=== PATIENT | female | born 1955 | race Hispanic/Latino ===

== ENCOUNTER 2017-11-09 08:36 | Outpatient (CLI) | payer BC | END 2017-11-09 08:37 | disposition home or self-care (01) | LOC: BICMAMMO 08:36 | PROVIDERS: ATTEND Family Medicine | DX: Z12.31 Encounter for screening mammogram for malignant neoplasm of breast (principal) | CPT/HCPCS: 77063; 77067 ==

== ENCOUNTER 2018-11-17 07:50 | Outpatient (CLI) | payer BC ==
--- NOTE | 2018-11-17 08:48 | MMO ---
Bilateral MAMMO Bilat Screen [facility]. CLINICAL HISTORY: Patient is 63 years old and is seen for screening. The patient has no family history of breast cancer. The patient has no personal history of cancer. The patient has a history of right Excisional Biopsy in 1995 - benign. VIEWS: The views performed were: bilateral craniocaudal with tomosynthesis and bilateral mediolateral oblique with tomosynthesis. FILMS COMPARED: The present examination has been compared to prior imaging studies performed at [facility] on 10/02/2015, 10/28/2016, 11/07/2016 and 11/09/2017. MAMMOGRAM FINDINGS: The breasts are heterogeneously dense, which could obscure a lesion on mammography. Finding 1: There are stable benign appearing calcifications seen in both breasts. Finding 2: There are new post-surgical scars seen in the lower region of both breasts. There are no suspicious masses, suspicious calcifications, or new areas of architectural distortion. IMPRESSION: THERE IS NO MAMMOGRAPHIC EVIDENCE OF MALIGNANCY. A ROUTINE FOLLOW-UP MAMMOGRAM IN 1 YEAR IS RECOMMENDED. THE RESULTS OF THIS EXAM WERE SENT TO THE PATIENT. ACR BI-RADS Category 2 - Benign finding MAMMOGRAPHY NOTE: 1. A negative mammogram report should not delay a biopsy if a dominant of clinically suspicious mass is present. 2. Approximately 10% to 15% of breast cancers are not detected by mammography. 3. Adenosis and dense breasts may obscure an underlying neoplasm. Reported by: SKYLAR REZA MD Electonically Signed: [id number]
--- NOTE | 2018-11-17 09:32 | BD ---
DEXA DENSITOMETRY: INDICATIONS: Postmenopausal osteoporosis screening. FINDINGS: LUMBAR SPINE BMD (g/cm2) T-SCORE L1 0.981 -0.1 L2 0.984 -0.4 L3 1.055 -0.3 L4 1.062 0.0 TOTAL 1.024 -0.2 FEMORAL NECK DENSITY 0.745 -0.9 TOTAL 0.926 -0.1 IMPRESSION: The bone mineral density of the lumbar spine and femoral neck are within the normal range. POS: MYLA
== END 2018-11-17 07:51 | disposition home or self-care (01) ==
LOC: BICMAMMO 07:50
PROVIDERS: ATTEND Family Medicine
DX: Z12.31 Encounter for screening mammogram for malignant neoplasm of breast (principal); Z13.820 Encounter for screening for osteoporosis; Z91.89 Other specified personal risk factors, not elsewhere classified
CPT/HCPCS: 77063; 77067; 77080

== ENCOUNTER 2019-04-22 08:35 | Outpatient (CLI) | payer BC ==
--- NOTE | 2019-04-22 10:13 | RAD ---
2 VIEWS CHEST: Date: 04/22/2019 PROVIDED CLINICAL HISTORY: Shortness of breath. FINDINGS: No comparisons. Cardiac and mediastinal silhouette is within normal limits. No focal consolidation, pleural fluid, or pneumothorax apparent. Degenerative changes involve the thoracic spine. Nonspecific prominence of th e pulmonary interstitium. IMPRESSION: No evidence for an acute cardiopulmonary process. POS: OFF
== END 2019-04-22 08:36 | disposition home or self-care (01) ==
LOC: BICRAD 08:35
DX: J02.9 Acute pharyngitis, unspecified (principal); J45.909 Unspecified asthma, uncomplicated; R09.81 Nasal congestion; R06.02 Shortness of breath; R07.89 Other chest pain
CPT/HCPCS: 71046

== ENCOUNTER 2020-04-18 12:36 | Outpatient (CLI) | payer BC ==
--- NOTE | 2020-04-18 13:06 | RAD ---
Exam: XR Femur Lt 2 View STANDARD HISTORY: Soft tissue mass. History of abscess lateral femur. History of dogbite. COMPARISON: None FINDINGS: No acute fracture, dislocation, or other acute osseous abnormality is identified. IMPRESSION: No acute osseous abnormality is visualized. Soft tissues would be better evaluated with CT scan or MR I depending on clinical concern.
== END 2020-04-18 12:37 | disposition home or self-care (01) ==
LOC: BICRAD 12:36
PROVIDERS: ATTEND Surgery
DX: M79.89 Other specified soft tissue disorders (principal)